=== PATIENT | female | born 1945 | race Caucasian/White ===

== ENCOUNTER → 2019-07-09 | Outpatient (CLI) | payer MEDICARE ==
[~2019-07-09] MED LIST: REGADENOSON 0.4 MG/5 ML SYRINGE ONE
== END | disposition home or self-care (01) ==
LOC: CFH 10:55
PROVIDERS: ATTEND Internal Medicine Cardiovascular Disease
DX: I08.3 Combined rheumatic disorders of mitral, aortic and tricuspid valves (principal); I25.10 Atherosclerotic heart disease of native coronary artery without angina pectoris; I11.9 Hypertensive heart disease without heart failure; E78.5 Hyperlipidemia, unspecified
CPT/HCPCS: 78452; 93017; 93306; A9502; J2785

== ENCOUNTER → 2020-08-05 | Outpatient (CLI) | payer MEDICARE | END | disposition home or self-care (01) | LOC: CVU 09:27 | PROVIDERS: ATTEND Internal Medicine Cardiovascular Disease | DX: I65.23 Occlusion and stenosis of bilateral carotid arteries (principal); I25.83 Coronary atherosclerosis due to lipid rich plaque; E78.2 Mixed hyperlipidemia | CPT/HCPCS: 93880 ==